=== PATIENT | male | born 1985 | race African-American/Black ===

== ENCOUNTER 2018-01-26 16:54 | Observation (INO) ==
[2018-01-26] MEDS ORDERED: Sod Chloride 0.9% Inj 1,000 ML IV.SIG ONE ×2 (17:44→18:50)
--- NOTE | 2018-01-26 17:48 | ED ---
HPI General Chief complaint: Nausea/Vomiting/Diarrhea Stated complaint: NAUSEA/LIGHT HEADED/BODY CRAMPS TODAY Time Seen by Provider: 01/26/18 17:31 History of Present Illness HPI narrative: Patient 32-year-old male presents emergency 4 times a day just clear liquids and then dry heaving. 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 He then developed some nausea vomiting and diarrhea. States body aches getting worse and he feels fairly dehydrated and weak. States never had symptoms like this before, mild abdominal cramping as well. No chest pain no shortness of breath. Onset (ago): hour(s) Location: abdomen Radiation: non-radiation Severity: moderate Quality: aching Pain Consistency: constant Relieving factors: none Exacerbating factors: none Associated symptoms: malaise, nausea/vomiting and weakness Related Data Home Medications Medication Instructions Recorded Confirmed albuterol sulfate 2 puff INHALATION Q4-6H PRN 01/26/18 01/26/18 Allergies Allergy/AdvReac Type Severity Reaction Status Date / Time iodine Allergy Unknown Burning Verified 01/26/18 17:11 potassium iodide Allergy Unknown Chills Verified 01/26/18 17:11 povidone-iodine Allergy Unknown Chest Pain Verified 01/26/18 17:11 shellfish derived Allergy Unknown Confusion Verified 01/26/18 17:11 sodium iodide Allergy Unknown Constipatio Verified 01/26/18 17:11 n sodium iodide Allergy Unknown Depression Verified 01/26/18 17:11 Review of Systems Except as stated in HPI: all other systems reviewed are negative [facility] Medical History Medical History Asthma (Acute) PTSD (post-traumatic stress disorder) (Acute) Social History Social History Substance History: Active Abuse Second Hand Smoke Exposure: Yes Smoking Status: Current some day smoker Tobacco Type: Cigarettes How Often Do You Have a Drink Containing Alcohol: 2 to 3 times a week Recent Travel in [facility] within the Last 8 Weeks: No Recent Out of Country Travel within the Last 8 Weeks: No Exam Narrative Exam Narrative: GENERAL: Well-developed morbidly obese male, appears fatigued but in no obvious distress. SKIN: Focused skin assessment warm/dry. HEAD: Atraumatic. Normocephalic. EYES: Pupils equal and round. No scleral icterus. No injection or drainage. ENT: No nasal bleeding or discharge. Mucous membranes pink and moist. NECK: Trachea midline. No JVD. CARDIOVASCULAR: Regular rate and rhythm. No murmur appreciated. RESPIRATORY: No accessory muscle use. Clear to auscultation. Breath sounds equal bilaterally. GASTROINTESTINAL: Abdomen soft, non-tender, nondistended. Hepatic and splenic margins not palpable. No rebound no percussive tenderness. MUSCULOSKELETAL: No obvious deformities. No clubbing. No cyanosis. No edema. NEUROLOGICAL: Awake and alert. No obvious cranial nerve deficits. Motor grossly within normal limits. Normal speech. PSYCHIATRIC: Appropriate mood and affect; insight and judgment normal. Course Initial Documented Vital Signs Temperature 98.3 F 01/26/18 17:11 Pulse Rate 87 01/26/18 17:11 Blood Pressure 152/86 H 01/26/18 17:11 Pulse Oximetry 99 01/26/18 17:11 Last Documented Vital Signs Temperature 98.3 F 01/26/18 17:11 Pulse Rate 94 H 01/26/18 18:17 Respiratory Rate 18 01/26/18 18:17 Blood Pressure 114/77 01/26/18 18:17 Pulse Oximetry 96 01/26/18 18:17 Medical Decision Making [facility] Narrative Medical decision making narrative: Patient room to the emergency department, appears only mildly dehydrated, liter normal saline, Zofran ordered for him, basic labs including a CPK. Patient labs return showing BENITA with Cr. of 3.6. Patient has no reported history of kidney issues, has no previous for comparison here. CK elevated to 1800. D/W Patient and Dr. Contreras, both agreeable for admission. 2L NS in ed and ultram for aches. Abdomen is benign on exam. Final diagnosis, Rhabdomyolysis with acute kidney injury. Differential Diagnosis Differential Diagnosis: Rhabdomyolysis, dehydration, acute kidney injury, electrolyte normality, gastritis, gastroenteritis, acute abdomen highly unlikely peer Lab Data Result diagrams: 01/26/18 18:15 01/26/18 18:15 Lab Results 01/26/18 01/26/18 Range/Units 18:15 18:15 CBC w Diff Auto diff final WBC 14.0 H (4.0-11.0) th/mm3 RBC 5.94 H (4.50-5.90) mil/mm3 Hgb 17.0 (13.0-17.0) gm/dL Hct 50.5 (39.0-51.0) % MCV 85.1 (80.0-100.0) fL MCH 28.7 (27.0-34.0) pg MCHC 33.7 (32.0-36.0) % RDW 14.6 (11.6-17.2) % Plt Count 380 (150-450) th/mm3 MPV 9.2 (7.0-11.0) fL Neut % (Auto) 90.7 H (16.0-70.0) % Lymph % (Auto) 5.2 L (9.0-44.0) % [place] % (Auto) 3.9 (0.0-8.0) % Eos % (Auto) 0.0 (0.0-4.0) % Baso % (Auto) 0.2 (0.0-2.0) % Neut # (Auto) 12.8 H (1.8-7.7) th/mm3 Lymph # (Auto) 0.7 L (1.0-4.8) th/mm3 [place] # (Auto) 0.5 (0.0-0.9) th/mm3 Eos # (Auto) 0.0 (0.0-0.4) th/mm3 Baso # (Auto) 0.0 (0.0-0.2) th/mm3 WBC Differential . Differential Comment . Sodium 136 (136-145) meq/L Potassium 4.6 (3.5-5.1) meq/L Chloride 97 L (98-107) meq/L Carbon Dioxide 24.8 (21.0-32.0) meq/L Anion Gap 14 (5-15) meq/L BUN 22 H (7-18) mg/dL Creatinine 3.60 H (0.60-1.30) mg/dL Estimated GFR 24 L (>89) mL/min Random Glucose 107 H (74-106) mg/dL Calcium 10.6 H (8.5-10.1) mg/dL Total Bilirubin 1.2 H (0.2-1.0) mg/dL AST 46 H (15-37) U/L ALT 53 (12-78) U/L Alkaline Phosphatase 63 (45-117) U/L Total Creatine Kinase 1853 H (39-308) U/L Total Protein 10.4 H (6.4-8.2) g/dL Albumin 5.3 H (3.4-5.0) g/dL Lipase 80 (73-393) U/L Discharge Plan Discharge Disposition Patient Disposition: 32 Still Patient Physicians Team ED Provider: Surinder Fair Primary Care Provider: [facility],Physician 's Rxs /Orders / Referrals /Forms Prescriptions: No Action albuterol sulfate 90 mcg/actuation Hfa Aerosol Inhaler 2 puff INHALATION Q4-6H PRN (Reason: Shortness Of Breath) RF: 0 Discharge Interventions Interventions: Vital Signs Last Done: 01/26/18 18:17 Status ED Status: With Doctor
[2018-01-26 18:33] LABS: Baso % (Auto) 0.2 % (0.0-2.0); Hematocrit 50.5 % (39.0-51.0); Lymph # (Auto) 0.7 th/mm3 (1.0-4.8); Lymph % (Auto) 5.2 % (9.0-44.0); Mean Corpuscular HGB Conc 33.7 % (32.0-36.0); Mean Corpuscular Hemoglobin 28.7 pg (27.0-34.0); Mean Corpuscular Volume 85.1 fL (80.0-100.0); Mean Platelet Volume 9.2 fL (7.0-11.0); Mono # (Auto) 0.5 th/mm3 (0.0-0.9); Mono % (Auto) 3.9 % (0.0-8.0); Neut # (Auto) 12.8 th/mm3 (1.8-7.7); Neut % (Auto) 90.7 % (16.0-70.0); Platelet Count 380 th/mm3 (150-450); Red Blood Count 5.94 mil/mm3 (4.50-5.90); Red Cell Distribution Width 14.6 % (11.6-17.2)
[2018-01-26 18:35] LABS: Chloride 97 meq/L (98-107); Potassium 4.6 meq/L (3.5-5.1); Sodium 136 meq/L (136-145)
[2018-01-26 18:39] LABS: Calcium 10.6 mg/dL (8.5-10.1)
[2018-01-26 18:40] LABS: Albumin 5.3 g/dL (3.4-5.0); Anion Gap 14 meq/L (5-15); Blood Urea Nitrogen 22 mg/dL (7-18); Carbon Dioxide 24.8 meq/L (21.0-32.0); Glucose,Random 107 mg/dL (74-106); Lipase 80 U/L (73-393)
[2018-01-26 18:43] LABS: Alanine Aminotransferase 53 U/L (12-78); Aspartate Aminotransferase 46 U/L (15-37); Glomerular Filtration Rate 24 mL/min (>89)
[2018-01-26 18:45] LABS: Total Protein 10.4 g/dL (6.4-8.2)
[2018-01-26 18:46] LABS: Alkaline Phosphatase 63 U/L (45-117)
[2018-01-26 18:57] LABS: Creatine Kinase 1853 U/L (39-308)
[2018-01-26] MEDS ORDERED: Bisacodyl 10 MG Supp RECTAL PRN (19:10)
[2018-01-26] MEDS ORDERED: Temazepam 15 MG Capsule PO PRN (19:10)
[2018-01-26] MEDS ORDERED: Acetaminophen 325 MG Tablet PO PRN (19:10)
[2018-01-26 19:26] LABS: CKMB Percent 0.3 % (0.0-4.0); Creatine Kinase MB 5.7 ng/mL (0.5-3.6)
[2018-01-26] MEDS: Sod Chloride 0.9% Inj 1,000 ML IV.CONT SCH (19:31)
[2018-01-26 20:02] LABS: Clarity,Urine Slightly Cloudy (Clear); Color,Urine Yellow (Yellw/Straw); Glucose,Urine (UA) Negative (Negative); Leukocyte Esterase,Urine Negative (Negative); Nitrite,Urine Negative (Negative); PH,Urine 5.5 (5.0-8.5); Specific Gravity,Urine Greater/Equal 1.030 (1.002-1.035); Urobilinogen,Urine 0.2 mg/dL (Less than 2)
[2018-01-26 20:05] LABS: Bilirubin,Urine Negative (Negative)
[2018-01-26 20:08] LABS: Bacteria,Urine Moderate /hpf; Mucus,Urine Moderate /lpf (Occasional); RBC,Urine 0-3 /hpf (0-3); Squamous Epithelial Cell,Urine 0-5 /hpf (0-5); WBC,Urine 0-5 /hpf (0-5)
[2018-01-27] MEDS: Sod Chloride 0.9% Inj 1,000 ML IV.CONT SCH ×5 (03:05→19:32)
[2018-01-27] MEDS: Senna/Docusate Sodium 8.6/50 MG Tablet PO SCH ×3 (04:14→21:14)
[2018-01-27 06:22] LABS: Baso # (Auto) 0.3 th/mm3 (0.0-0.2); Baso % (Auto) 2.1 % (0.0-2.0); Eos % (Auto) 0.1 % (0.0-4.0); Hematocrit 39.5 % (39.0-51.0); Lymph # (Auto) 1.9 th/mm3 (1.0-4.8); Lymph % (Auto) 14.9 % (9.0-44.0); Mean Corpuscular HGB Conc 34.1 % (32.0-36.0); Mean Corpuscular Hemoglobin 29.1 pg (27.0-34.0); Mean Corpuscular Volume 85.3 fL (80.0-100.0); Mean Platelet Volume 8.9 fL (7.0-11.0); Mono # (Auto) 1.2 th/mm3 (0.0-0.9); Mono % (Auto) 9.8 % (0.0-8.0); Neut # (Auto) 9.1 th/mm3 (1.8-7.7); Neut % (Auto) 73.1 % (16.0-70.0); Platelet Count 312 th/mm3 (150-450); Red Blood Count 4.63 mil/mm3 (4.50-5.90); Red Cell Distribution Width 14.1 % (11.6-17.2); White Blood Count 12.5 th/mm3 (4.0-11.0)
[2018-01-27 06:26] LABS: Hemoglobin 13.4 gm/dL (13.0-17.0)
[2018-01-27 06:34] LABS: Calcium 8.3 mg/dL (8.5-10.1); Carbon Dioxide 24.5 meq/L (21.0-32.0); Potassium 3.6 meq/L (3.5-5.1)
--- NOTE | 2018-01-27 09:38 | P.HPIM ---
History of Present Illness Primary Care Physician: [facility] Chief Complaint: nausea/vomiting History of Present Illness: patient is a 32 y/o male with history of asthma, who presented to ER with nausea , vomiting and bodyache. he says that he was working outside yesterday when he started to have nausea, vomiting with generalized body ache. he denies any abdominal pain, chest pain or sob. - Diagnosis (1) Dehydration (2) Acute kidney injury (3) Rhabdomyolysis Inpatient Certification: I certify that the inpatient services were ordered in accordance with Medicare regulations governing the order. This includes certification that hospital inpatient services are reasonable and necessary and in the case of services not specified as inpatient-only under 42 CFR 419.22(n), that they are appropriately provided as inpatient services in accordance to with the 2-midnight benchmark under 43 CFR 412.3(e) Review of Systems All other systems reviewed negative except as stated in HPI PMFSH - History History Provided By: Patient - Medical History Medical History: Medical History (Last Updated 01/26/18 @ 17:38 by Desi Leslie) Asthma PTSD (post-traumatic stress disorder) - Tobacco History Second Hand Smoke Exposure: No Tobacco Use In Past 30 Days: Yes Smoking Status: Current some day smoker Tobacco Type: Cigarettes - Alcohol History How Often Do You Have a Drink Containing Alcohol: Monthly or less - Substance Use History Substance History: No History of Abuse - Substance Use Type Marijuana Status: Active Route Used: Inhalation Frequency: PRN Reason for Use: Calm Down - Travel History Recent Travel in the [place] Within the Last 8 Weeks: No Recent Travel Out of the Country Within the Last 8 Weeks: No - Immunization History Tetanus Immunization: Unsure Hx Influenza Vaccine This Season: No Medications and Allergies Active Medications: Active Medications Acetaminophen (Tylenol) 650 mg PO Q4H PRN PRN Reason: Temp > 100.4 Al Hydroxide/Mg Hydroxide (Milk Of Magnesia Liq) 30 ml PO Q12H PRN PRN Reason: Mild Constipation Bisacodyl (Dulcolax Supp) 10 mg RECTAL DAILY PRN PRN Reason: SEVERE CONSITIPATION Sodium Chloride (Ns Inj) 1,000 mls @ 250 mls/hr IV.CONT .Q4H [facility] Last Admin: 01/27/18 04:28 Dose: 250 mls/hr Lactulose (Lactulose Liq) 30 ml PO DAILY PRN PRN Reason: SEVERE CONSITIPATION Ondansetron HCl (Zofran Inj) 4 mg IV.PUSH Q6H PRN PRN Reason: NAUSEA OR VOMITING Senna/Docusate Sodium (Bonny-Colace) 1 tab PO BID [facility] Last Admin: 01/27/18 04:14 Dose: Not Given Sennosides (Senokot) 17.2 mg PO Q12H PRN PRN Reason: Moderate Constipation Sodium Chloride (Ns Flush) 2 ml IV.FLUSH PRN PRN PRN Reason: FLUSH AFTER USING IV ACCESS Temazepam (Restoril) 15 mg PO HS PRN PRN Reason: INSOMNIA Allergies Allergy/AdvReac Type Severity Reaction Status Date / Time iodine Allergy Unknown Burning Verified 01/26/18 17:11 potassium iodide Allergy Unknown Chills Verified 01/26/18 17:11 povidone-iodine Allergy Unknown Chest Pain Verified 01/26/18 17:11 shellfish derived Allergy Unknown Confusion Verified 01/26/18 17:11 sodium iodide Allergy Unknown Constipatio Verified 01/26/18 17:11 n sodium iodide Allergy Unknown Depression Verified 01/26/18 17:11 Home Medications Medication Instructions Recorded Confirmed Type albuterol sulfate 2 puff INHALATION Q4-6H PRN 01/26/18 01/26/18 History Exam Vital signs: Vital Signs 01/26/18 17:11 01/26/18 18:17 01/26/18 19:10 Temperature 98.3 F Pulse Rate 87 94 H Respiratory Rate 18 Blood Pressure 152/86 H 114/77 Pulse Oximetry 99 96 97 01/26/18 19:24 01/26/18 21:26 01/26/18 23:30 Temperature 98.9 F Pulse Rate 86 82 82 Respiratory Rate 16 16 16 Blood Pressure 147/91 H 148/84 H 142/78 H Pulse Oximetry 97 97 01/27/18 02:00 01/27/18 07:01 Temperature 98.3 F Pulse Rate 80 65 Respiratory Rate 16 16 Blood Pressure 137/84 140/65 Pulse Oximetry 97 99 Intake & Output 01/26/18 01/27/18 01/27/18 18:59 06:59 18:59 Intake Total 4000 / 4000 Output Total 200 / 200 550 / 550 Balance 3800 / 3800 -550 / -550 Weight 130 kg Intake: IV 4000 / 4000 NS Inj 1,000 ML @ 250 mls/hr IV 1999 / 1999 .CONT .Q4H SUNNY Rx#:[id number] NS Inj 1,000 ML @ Wide Open IV. 1000 / 1000 SIG BOLUS ONE Rx#:[id number] Output: Urine 200 / 200 550 / 550 - Constitutional no acute distress - Routine Neck Exam Present: supple, full ROM - Routine Respiratory Exam Present: CTA bilaterally - Routine Cardiovascular Exam Present: RRR - Routine Abdominal Exam Present: soft - Routine Extremities Exam Comments: no pedal edema. - Routine Neurological Exam Present: alert, oriented X3 Results - Labs CBC & Chem 7: 01/27/18 06:00 01/27/18 06:00 Labs: Short CBC 01/26/18 01/27/18 Range/Units 18:15 06:00 WBC 14.0 H 12.5 H (4.0-11.0) th/mm3 Hgb 17.0 13.4 D (13.0-17.0) gm/dL Hct 50.5 39.5 (39.0-51.0) % Plt Count 380 312 (150-450) th/mm3 BMP 01/26/18 01/27/18 18:15 06:00 Sodium 136 138 Potassium 4.6 3.6 D Chloride 97 L 105 D Carbon Dioxide 24.8 24.5 BUN 22 H 17 Creatinine 3.60 H 1.40 H Calcium 10.6 H 8.3 L D Cardiac Enzymes 01/26/18 Range/Units 18:15 Total Creatine Kinase 1853 H (39-308) U/L CK-MB (CK-2) 5.7 H (0.5-3.6) ng/mL Liver Function 01/26/18 Range/Units 18:15 Total Bilirubin 1.2 H (0.2-1.0) mg/dL AST 46 H (15-37) U/L ALT 53 (12-78) U/L Alkaline Phosphatase 63 (45-117) U/L Albumin 5.3 H (3.4-5.0) g/dL Urine 01/26/18 Range/Units 19:58 Urine Color Yellow (Yellw/Straw) Urine Clarity Slightly cloudy (Clear) Urine pH 5.5 (5.0-8.5) Ur Specific [place] Greater/equal 1.030 (1.002-1.035) Urine Protein 30 H (Neg-Trace) mg/dL Urine Glucose (UA) Negative (Negative) mg/dL Caprini VTE Risk Assessment Caprini VTE Risk Assessment: No/Low Risk (score <= 1) Caprini Risk Assessment Model: Point Value = 1 Point Value = 2 Point Value = 3 Point Value = 5 Age 41-60 Minor surgery BMI > 25 kg/m2 Swollen legs Varicose veins or History of unexplained or recurrent spontaneous Oral contraceptives or hormone replacement Sepsis (< 1 month) Serious lung disease, including pneumonia (< 1 month) Abnormal pulmonary function Acute myocardial infarction Congestive heart failure (< 1 month) History of inflammatory bowel disease Medical patient at bed rest Age 61-74 Arthroscopic surgery Major open surgery (> 45 min) Laparoscopic surgery (> 45 min) Malignancy Confined to bed (> 72 hours) Immobilizing plaster cast Central venous access Age >= 75 History of VTE Family history of VTE Factor V Leiden Prothrombin [id number] Lupus anticoagulant Anticardiolipin antibodies Elevated serum homocysteine Heparin-induced thrombocytopenia Other congenital or acquired thrombophilia Stroke (< 1 month) Elective arthroplasty Hip, pelvis, or leg fracture Acute spinal cord injury (< 1 month) Prophylaxis Regimen: Total Risk Factor Score Risk Level Prophylaxis Regimen 0-1 Low Early ambulation 2 Moderate Order ONE of the following: *Sequential Compression Device (SCD) *Heparin 5000 units SQ BID 3-4 Higher Order ONE of the following medications: *Heparin 5000 units SQ TID *Enoxaparin/Lovenox 40 mg SQ daily (WT < 150 kg, CrCl > 30 mL/min) *Enoxaparin/Lovenox 30 mg SQ daily (WT < 150 kg, CrCl > 10-29 mL/min) *Enoxaparin/Lovenox 30 mg SQ BID (WT < 150 kg, CrCl > 30 mL/min) AND/OR *Sequential Compression Device (SCD) 5 or more Highest Order ONE of the following medications: *Heparin 5000 units SQ TID (Preferred with Epidurals) *Enoxaparin/Lovenox 40 mg SQ daily (WT < 150 kg, CrCl > 30 mL/min) *Enoxaparin/Lovenox 30 mg SQ daily (WT < 150 kg, CrCl > 10-29 mL/min) *Enoxaparin/Lovenox 30 mg SQ BID (WT < 150 kg, CrCl > 30 mL/min) AND *Sequential Compression Device (SCD) Assessment and Plan - Assessment (1) Dehydration Code(s): E86.0 - Dehydration Status: Acute Plan: improved after IV fluid. (2) Acute kidney injury Code(s): N17.9 - Acute kidney failure, unspecified Status: Acute Plan: due to dehydration- has much improved after IV hydration. (3) Rhabdomyolysis Code(s): M62.82 - Rhabdomyolysis Status: Acute Plan: continue IV fluid- check the CPK level today. - Plan Discussed Condition With: the patient. Discharge Planning: possible dc home later this evening. H&P: Quality - VTE Deep Vein Thrombosis/Pulmonary Embolism Present on Admission: No
[2018-01-27 10:28] LABS: CKMB Percent 0.7 % (0.0-4.0); Creatine Kinase MB 11.7 ng/mL (0.5-3.6)
[2018-01-27 18:30] LABS: Potassium 3.9 meq/L (3.5-5.1)
[2018-01-27 18:32] LABS: Calcium 8.1 mg/dL (8.5-10.1)
[2018-01-27 19:06] LABS: CKMB Percent 0.9 % (0.0-4.0); Creatine Kinase MB 17.3 ng/mL (0.5-3.6)
[2018-01-28] MEDS: Sod Chloride 0.9% Inj 1,000 ML IV.CONT SCH ×3 (00:15→09:30)
[2018-01-28 08:54] LABS: Chloride 108 meq/L (98-107); Sodium 142 meq/L (136-145)
[2018-01-28 08:56] LABS: Calcium 8.3 mg/dL (8.5-10.1)
[2018-01-28 08:57] LABS: Anion Gap 7 meq/L (5-15); Blood Urea Nitrogen 9 mg/dL (7-18); Carbon Dioxide 26.7 meq/L (21.0-32.0); Glucose,Random 77 mg/dL (74-106)
[2018-01-28 09:00] LABS: Glomerular Filtration Rate Greater Than 89 mL/min (>89)
[2018-01-28 09:15] LABS: Creatine Kinase 1830 U/L (39-308)
[2018-01-28] MEDS: Senna/Docusate Sodium 8.6/50 MG Tablet PO SCH (09:31)
[2018-01-28 10:32] LABS: Creatine Kinase MB 17.4 ng/mL (0.5-3.6)
[2018-01-28 14:52] LABS: CKMB Percent 0.9 % (0.0-4.0); Creatine Kinase MB 17.2 ng/mL (0.5-3.6)
--- NOTE | 2018-01-28 15:05 | P.PNADD ---
Addendum to Inpatient Note Reason for Addendum: Additional Documentation (repeated CPK was reviewed. d/w the patient. he doesn't want to stay for further IV fluid therapy. however he denies any symptoms with no muscle or body ache. renal function back to normal and stable.patient will be discharged home. he was advised to drink plenty of water over the next few days and avoid heavy exercises and have a close f/u with his pcp. he undestood and agreed.)
== END 2018-01-28 16:10 | disposition home or self-care (01) ==
LOC: PH3 16:54 → PHED 16:54 → PHEDA 19:38 → INTOOBSV 19:38 → PH3 01-27 07:17
PROVIDERS: ADMIT Internal Medicine; ATTEND Internal Medicine